=== PATIENT | female | born 1965 | race Caucasian/White ===

== ENCOUNTER 2017-02-03 08:30 | Day surgery (SDC) | payer OTHER ==
[~2017-02-03] VITALS: Ht 154.9 cm; Wt 94.0 kg
[~2017-02-03 08:30] MED LIST: 0.9% Sodium Chloride 1,000 ML IV SCH; ASPI325T32 PO; CYCL5TAB PO; HYDR-4003 PO; HYDR12.55 PO; ONDA-53 PO; SERT50TA PO; Sodium Chloride LOK Flush 10 mL Syringe IV PRN; fentaNYL-PF 50 mCg/mL 2 mL Inj IVPUSH PRN
[2017-02-03 09:07] VITALS: BP 130/93; PULSE 86; RESP 14; O2SAT 96
[2017-02-03 10:06] VITALS: BP 143/95; PULSE 72; RESP 12; O2SAT 95
[2017-02-03 10:20] VITALS: BP 140/79; PULSE 59; RESP 12; O2SAT 97
--- NOTE | 2017-02-03 10:43 | ENDO ---
[address] [address] ENDOSCOPY PROCEDURE PATIENT: NAYE PEÑA : 1965 MR#: [id number] ADMIT: 02/03/2017 JOB ID: [id number] DATE OF SERVICE: 02/03/2017 PROCEDURE: Colonoscopy. INDICATION: Screening. ASA CLASSIFICATION: II MALLAMPATI SCORE: 2, MEDICATIONS: Versed 3 mg, fentanyl 75 mcg. INSTRUMENT USED: PCF-H180AL. PREPARATION QUALITY: Good. PROCEDURE DETAILS: After informed consent was obtained, the patient was brought into the GI suite, where she was placed on oxygen via nasal cannula, and monitored with continuous pulse oximeter, telemetry, and blood pressure monitoring. A time-out was performed, and then she was placed in a left lateral decubitus position, and medications were administered for sedation. Digital rectal exam was performed, which was unremarkable. The colonoscope was then inserted into the rectum and advanced under direct visualization to the cecum, which was identified by the presence of the ileocecal valve and appendiceal orifice. Once the cecum was reached, the colonoscope was then withdrawn back into the rectum as the mucosa and lumen were examined. In the rectum, retroflexion was performed. Following retroflexion, remaining air in the rectum was suctioned, and the procedure was completed. FINDINGS: 1. In the descending colon, there was an approximately 5 mm sessile polyp, which was removed with a hot snare. 2. In the sigmoid colon, there was a 3-4 mm sessile polyp, which was removed with a cold snare. 3. Internal hemorrhoids were noted as the scope was withdrawn through the anal canal. IMPRESSION: 1. Descending colon polyp. 2. Sigmoid polyp. 3. Internal hemorrhoids. RECOMMENDATIONS: 1. Avoid NSAIDs and anticoagulants for 72 hours. 2. Fiber rich diet. COMPLICATIONS: None. ESTIMATED BLOOD LOSS: Less than 5 mL.
--- NOTE | 2017-02-04 16:22 | PATH ---
SURGICAL PATHOLOGY Attending Physician:Spencer Saldivar CASE STATUS: Signed Out PATIENT NAME: NAYE PEÑA PID: [id number] : 1965 DATE COLLECTED:02/03/2017 17:16 SPECIMEN: 1: Colon, Biopsy 2: Colon, Biopsy CLINICAL HISTORY: 1. DESCENDING COLON POLYP 2. SIGMOID COLON POLYP FINAL DIAGNOSIS: 1. Descending Colon, Polyp, Biopsy: Polypoid portion of colorectal mucosa with ischemic-type changes and a prominent lymphoid aggregate. 2. Sigmoid Colon, Polyp, Biopsy: Portion of tubular adenoma x1; negative for high-grade dysplasia. Polypoid portion of colorectal mucosa x 1 with focal mucosal erosion and ischemic-type changes. ICD10: K63.5 GROSS DESCRIPTION: The specimen is received in two formalin filled containers labeled with the patient's name. 1). The specimen is sublabeled "descending colon polyp" and consists of a 0.4 x 0.3 x 0.3 CM portion of tissue which is entirely submitted in cassette 1A. 2). The specimen is sublabeled "sigmoid colon polyp" and consists of 2 portions of tissue which aggregate to 0.3 x 0.2 x 0.1 CM. The specimen is entirely submitted in cassette 2A. 02/03/2017 [facility] ICD-9 CODES: CPT CODES: 1: 03429 2: 13771 Electronically Signed Out Alissa Coronado MD [facility] [address], [place] [address] Technical component performed at [facility], [facility] [address], [address]
== END 2017-02-03 23:59 | disposition home or self-care (01) ==
LOC: END 08:30
PROVIDERS: ATTEND Internal Medicine Gastroenterology
DX: Z12.11 Encounter for screening for malignant neoplasm of colon (principal); Z80.0 Family history of malignant neoplasm of digestive organs; D12.5 Benign neoplasm of sigmoid colon; K63.5 Polyp of colon; K64.8 Other hemorrhoids; I10 Essential (primary) hypertension; I70.1 Atherosclerosis of renal artery; F41.8 Other specified anxiety disorders; J32.9 Chronic sinusitis, unspecified; F17.210 Nicotine dependence, cigarettes, uncomplicated; E66.01 Morbid (severe) obesity due to excess calories; Z68.41 Body mass index [BMI] 40.0-44.9, adult; Z79.82 Long term (current) use of aspirin; Z79.891 Long term (current) use of opiate analgesic
CPT/HCPCS: 45385; G0500; J2250; J3010; J7030